=== PATIENT | male | born 1990 | race Caucasian/White ===

== ENCOUNTER 2016-10-19 16:07 | Emergency (ER) | payer OTHER ==
[2016-10-19] MEDS ORDERED: SODIUM CHLORIDE 0.9% 500 ML IV STA (17:06)
[2016-10-19] MEDS ORDERED: KETOROLAC 30 MG/ML 1 ML VIAL IVP STA (17:06)
--- NOTE | 2016-10-19 17:12 | ED ---
General Adult HPI - General Chief complaint: Abdominal Pain Stated complaint: Abd Pain Time Seen by Provider: 10/19/16 16:10 Source: patient, RN notes reviewed Mode of arrival: ambulatory Limitations: no limitations - History of Present Illness Initial comments: This is a 26-year-old male presents emergency Department complaining of abdominal pain. Patient states it started in the epigastric region on Wednesday but has progressed to the right lower quadrant. Patient states he does a lot of heavy lifting at work but he does not remember straining himself. Patient states twisting does make the pain increased. Patient states he is nauseated but has been able to eat and drink normally. Patient denies any diarrhea. Patient states he's had no fever chills. Patient denies any radiation of the pain. Patient denies any dysuria hematuria urinary frequency. Patient denies any back pain. Patient denies chest pain palpitations difficulty breathing. - Related Data Previous Rx's Medication Instructions Recorded Levofloxacin [Levaquin] 750 mg PO DAILY #10 tab 10/19/16 metroNIDAZOLE [Flagyl] 500 mg PO QID #40 tab 10/19/16 Allergies Allergy/AdvReac Type Severity Reaction Status Date / Time amphetamine [From Adderall] Allergy Rash/Hives Verified 10/19/16 16:54 dextroamphetamine Allergy Rash/Hives Verified 10/19/16 16:54 [From Adderall] Penicillins Allergy Rash/Hives Verified 10/19/16 16:54 Review of Systems ROS Statement: Those systems with pertinent positive or pertinent negative responses have been documented in the HPI. ROS Other: All systems not noted in ROS Statement are negative. Past Medical History Past Medical History: No Reported History History of Any Multi-Drug Resistant Organisms: None Reported Past Surgical History: Orthopedic Surgery Additional Past Surgical History / Comment(s): Right hand surg Past Psychological History: No Psychological Hx Reported Smoking Status: Current every day smoker Past Alcohol Use History: Occasional Past Drug Use History: None Reported General Exam - General Exam Comments Initial Comments: GENERAL: Patient is well-developed and well-nourished. Patient is nontoxic and well- hydrated and is in mild distress. ENT: Neck is soft and supple. No significant lymphadenopathy is noted. Oropharynx is clear. Moist mucous membranes. Neck has full range of motion without eliciting any pain. EYES: The sclera were anicteric and conjunctiva were pink and moist. Extraocular movements were intact and pupils were equal round and reactive to light. Eyelids were unremarkable. PULMONARY: Unlabored respirations. Good breath sounds bilaterally. No audible rales rhonchi or wheezing was noted. CARDIOVASCULAR: There is a regular rate and rhythm without any murmurs gallops or rubs. ABDOMEN: Abdomen is tender in the right lateral mid abdomen No palpable organomegaly was noted. There is no palpable pulsatile mass. SKIN: Skin is clear with no lesions or rashes and otherwise unremarkable. NEUROLOGIC: Patient is alert and oriented x3. Cranial nerves II through XII are grossly intact. Motor and sensory are also intact. Normal speech, volume and content. Symmetrical smile. MUSCULOSKELETAL: Normal extremities with adequate strength and full range of motion. No lower extremity swelling or edema. No calf tenderness. LYMPHATICS: No significant lymphadenopathy is noted PSYCHIATRIC: Normal psychiatric evaluation. Normal interpersonal interactions appears functionally intact in deals appropriately with others. No signs of depression. No signs of anxiety. Limitations: no limitations Course Vital Signs 10/19/16 10/19/16 16:09 18:30 Temperature 98.5 F Pulse Rate 72 59 L Respiratory 16 18 Rate Blood Pressure 151/87 133/62 O2 Sat by Pulse 98 98 Oximetry Medical Decision Making - Medical Decision Making Ultrasound shows a possible appendicitis. CAT scan verifies the patient has acute appendicitis. Dr. Virk came down to talk to the patient patient refused surgery. I patient again he continued to refuse surgery. Patient states he wants to go home and go on antibiotics and see if that helps. Patient states he wants to sign out AMA. Patient understands the risks of his symptoms getting worse and possibly causing . - Lab Data Result diagrams: 10/19/16 17:24 10/19/16 17:24 Lab Results 10/19/16 10/19/16 10/19/16 Range/Units 17:24 17:24 17:24 WBC 6.8 (3.8-10.6) k/uL RBC 5.31 (4.30-5.90) m/uL Hgb 17.1 (13.0-17.5) gm/dL Hct 47.9 (39.0-53.0) % MCV 90.3 (80.0-100.0) fL MCH 32.2 (25.0-35.0) pg MCHC 35.7 (31.0-37.0) g/dL RDW 12.5 (11.5-15.5) % Plt Count 227 (150-450) k/uL Neutrophils % 61 % Lymphocytes % 26 % Monocytes % 6 % Eosinophils % 4 % Basophils % 1 % Neutrophils # 4.1 (1.3-7.7) k/uL Lymphocytes # 1.8 (1.0-4.8) k/uL Monocytes # 0.4 (0-1.0) k/uL Eosinophils # 0.3 (0-0.7) k/uL Basophils # 0.1 (0-0.2) k/uL Sodium 143 (137-145) mmol/L Potassium 4.4 (3.5-5.1) mmol/L Chloride 108 H (98-107) mmol/L Carbon Dioxide 24 (22-30) mmol/L Anion Gap 11 mmol/L BUN 13 (9-20) mg/dL Creatinine 1.09 (0.66-1.25) mg/dL Est GFR (MDRD) Af Amer >60 (>60 ml/min/1.73 sqM) Est GFR (MDRD) Non-Af >60 (>60 ml/min/1.73 sqM) Glucose 82 (74-99) mg/dL Calcium 9.5 (8.4-10.2) mg/dL Total Bilirubin 0.6 (0.2-1.3) mg/dL AST 19 (17-59) U/L ALT 40 (21-72) U/L Alkaline Phosphatase 56 (38-126) U/L Total Protein 7.3 (6.3-8.2) g/dL Albumin 4.4 (3.5-5.0) g/dL Amylase <30 L (30-110) U/L Lipase 82 (23-300) U/L Urine Color Yellow Urine Appearance Clear (Clear) Urine pH 5.5 (5.0-8.0) Ur Specific [place] 1.026 (1.001-1.035) Urine Protein Trace H (Negative) Urine Glucose (UA) Negative (Negative) Urine Ketones Negative (Negative) Urine Blood Negative (Negative) Urine Nitrite Negative (Negative) Urine Bilirubin Negative (Negative) Urine Urobilinogen <2.0 (<2.0) mg/dL Ur Leukocyte Esterase Negative (Negative) Disposition Clinical Impression: Acute appendicitis Disposition: Left Against Medical Advice Prescriptions: Levofloxacin [Levaquin] 750 mg PO DAILY #10 tab metroNIDAZOLE [Flagyl] 500 mg PO QID #40 tab Referrals: Jason Bloom DO [Primary Care Provider] - 1-2 days Time of Disposition: 20:24
[2016-10-19 17:38] LABS: Appearance,Urine Clear (Clear); Bilirubin,Urine Negative (Negative); Glucose,Urine (UA) Negative (Negative); Ketones,Urine Negative (Negative); Leukocyte Esterase,Urine Negative (Negative); Nitrite,Urine Negative (Negative); PH, Urine 5.5 (5.0-8.0); Protein,Urine Trace (Negative); Specific Gravity,Urine 1.026 (1.001-1.035); UA Billing (MACRO vs. MICRO) CHEM; Urobilinogen,Urine <2.0 mg/dL (<2.0)
[2016-10-19 17:43] LABS: ALT 40 U/L (21-72); AST 19 U/L (17-59); Alkaline Phosphatase 56 U/L (38-126); Amylase <30 U/L (30-110); Anion Gap 11 mmol/L; Blood Urea Nitrogen 13 mg/dL (9-20); Calcium 9.5 mg/dL (8.4-10.2); Carbon Dioxide 24 mmol/L (22-30); Chloride 108 mmol/L (98-107); Glucose 82 mg/dL (74-99); Non-African American GFR(MDRD) >60 (>60 ml/min/1.73 sqM); Potassium 4.4 mmol/L (3.5-5.1); Sodium 143 mmol/L (137-145); Total Bilirubin 0.6 mg/dL (0.2-1.3); Total Protein 7.3 g/dL (6.3-8.2)
[2016-10-19 17:45] LABS: Basophils # (A) 0.1 k/uL (0-0.2); Basophils % (A) 1 %; CH 32.2; CHCM 35.8; Eosinophils # (A) 0.3 k/uL (0-0.7); Eosinophils % (A) 4 %; HCT 47.9 % (39.0-53.0); HDW 2.75; HGB 17.1 gm/dL (13.0-17.5); Luc % (Auto) 3; Lymphocytes # (A) 1.8 k/uL (1.0-4.8); Lymphocytes % (A) 26 %; MCH 32.2 pg (25.0-35.0); MCHC 35.7 g/dL (31.0-37.0); MCV 90.3 fL (80.0-100.0); Mean Platelet Volume 7.3; Monocytes # (A) 0.4 k/uL (0-1.0); Monocytes % (A) 6 %; Neutrophils # (A) 4.1 k/uL (1.3-7.7); Neutrophils % (A) 61 %; RBC 5.31 m/uL (4.30-5.90); RDW 12.5 % (11.5-15.5); WBC 6.8 k/uL (3.8-10.6); WBC (Perox) 6.72
[2016-10-19 18:31] VITALS: RESP 18
--- NOTE | 2016-10-19 19:06 | US ---
EXAMINATION TYPE: US abdomen APPY DATE OF EXAM: 10/19/2016 COMPARISON: NONE CLINICAL HISTORY: RLQ Pain. APPENDIX AP Diameter (normal < 6mm): 10 mm Measured outer wall to outer wall. Is the appendix seen in its entirety from the proximal cecum to distal end: Cecum is not visualized, however a tube like structure is visualized in the RLQ measuring 10 mm, possible appendix Is the appendix compressible: No Does the appendix wall appear hypervascular: Yes Is an appendicolith present: Not visualized on this exam Is there inflammatory changes or free fluid present: Yes, small amount of free fluid visualized in R LQ IMPRESSION: There is a 9 mm tubular structure demonstrated that is possibly a thickened appendix and related to appendicitis. There is minimal free fluid as well consistent with appendicitis.
[2016-10-19] MEDS ORDERED: RX INFO: IV CONTRAST WAS GIVEN 1 EACH MISC MISCELLANE PRN (19:11)
--- NOTE | 2016-10-19 20:15 | CT ---
EXAMINATION TYPE: CT abdomen pelvis w con DATE OF EXAM: 10/19/2016 COMPARISON: NONE HISTORY: RLQ pain x3 days. CT DLP: 642.7 mGycm Automated exposure control for dose reduction was used. TECHNIQUE: Helical acquisition of images was performed from the lung bases through the pelvis. CONTRAST: Performed without Oral Contrast and with IV Contrast, patient injected with 100 mL of Omnipaque 300. FINDINGS: Lung bases are clear. There is no pleural effusion. Liver spleen pancreas gallbladder appear normal. Bile ducts are not dilated. There is no adrenal mass. Kidneys show satisfactory contrast opacification. There is no hydronephrosi s. Ureters are not dilated. There is mild thickening of the appendix. There is minimal fat stranding around the appendix. There is no retroperitoneal adenopathy. There is no ascites. Bony structures appear intact. Bladder distends smoothly. There is no pelvic mass. Appendix measures 10 mm. IMPRESSION: THERE IS INFLAMMATORY CHANGE AND THICKENING OF THE APPENDIX CONSISTENT WITH ACUTE APPENDICITIS. NO AB SCESS.
[2016-10-19 20:32] VITALS: BP 145/67; PULSE 73; TEMP 98.6
--- NOTE | 2016-10-19 20:37 | P.PN ---
Progress Note - Text Patient seen and evaluated. I personally reviewed his studies which is consistent with acute appendicitis. Clinical exam is also consistent with right lower quadrant abdominal pain and acute appendicitis. The patient does report that his abdominal pain has improved. He is actually eager to go home. The patient is against any surgical intervention at this time. Risk of perforation including worsening abdominal pain was reviewed with him which he demonstrated understanding. The above discussion was also removed Dr. Dahl. Patient chose to leave AGAINST MEDICAL ADVICE.
== END 2016-10-19 20:38 | disposition left against medical advice (07) ==
LOC: EC 16:07
DX: K35.80 Unspecified acute appendicitis (principal); F17.200 Nicotine dependence, unspecified, uncomplicated; Z88.0 Allergy status to penicillin; Z88.8 Allergy status to other drugs, medicaments and biological substances; Z53.29 Procedure and treatment not carried out because of patient's decision for other reasons
CPT/HCPCS: 96374 ×2; 99284 ×2; 36415; 80053; 82150; 83690; 85025; 81003; 76705; 74177; J1885; Q9967

== ENCOUNTER 2016-10-20 17:51 | Observation (INO) | payer OTHER ==
[2016-10-20] MEDS ORDERED: LEVOFLOXACIN 750MG-D5W PMX 750 MG in DEXTROSE/WATER 1 150ML.BAG IVPB STA (18:14)
[2016-10-20] MEDS ORDERED: SODIUM CHLORIDE 0.9% 1,000 ML IV STA (18:14)
[2016-10-20] MEDS ORDERED: metroNIDAZOLE-NS PMX 500 MG in SALINE 1 100ML.BAG IVPB STA (18:18)
--- NOTE | 2016-10-20 18:22 | ED ---
Abdominal Pain HPI - General Chief Complaint: Abdominal Pain Stated Complaint: RLQ pain Time Seen by Provider: 10/20/16 18:09 Source: patient, RN notes reviewed Mode of arrival: ambulatory Limitations: no limitations - History of Present Illness Initial Comments: This a 26-year-old male presents emergency Department chief complaint of abdominal pain. Patient was seen in emergency department yesterday diagnosed with acute appendicitis but he left AGAINST MEDICAL ADVICE. Patient was evaluated by the surgeon in the emergency Department Dr. Virk. Patient left even against her recommendations surgery. Patient states that he has been taking Flagyl at home antibiotics. Patient states that the pain worsened today along with feeling feverish. Patient denies any vomiting had said some nausea no diarrhea no constipation. Patient states that he was concerned when the symptoms worsened today and decided to return. - Related Data Previous Rx's Medication Instructions Recorded Levofloxacin [Levaquin] 750 mg PO DAILY #10 tab 10/19/16 metroNIDAZOLE [Flagyl] 500 mg PO QID #40 tab 10/19/16 Allergies Allergy/AdvReac Type Severity Reaction Status Date / Time amphetamine [From Adderall] Allergy Rash/Hives Verified 10/20/16 18:07 dextroamphetamine Allergy Rash/Hives Verified 10/20/16 18:07 [From Adderall] Penicillins Allergy Rash/Hives Verified 10/20/16 18:07 Review of Systems ROS Statement: Those systems with pertinent positive or pertinent negative responses have been documented in the HPI. ROS Other: All systems not noted in ROS Statement are negative. Past Medical History Past Medical History: No Reported History History of Any Multi-Drug Resistant Organisms: None Reported Past Surgical History: Orthopedic Surgery Additional Past Surgical History / Comment(s): Right hand surg Past Psychological History: No Psychological Hx Reported Smoking Status: Current every day smoker Past Alcohol Use History: Occasional Past Drug Use History: None Reported General Exam Limitations: no limitations General appearance: alert, in no apparent distress Respiratory exam: Present: normal lung sounds bilaterally. Absent: respiratory distress, wheezes, rales, rhonchi, stridor Cardiovascular Exam: Present: regular rate, normal rhythm, normal heart sounds. Absent: systolic murmur, diastolic murmur, rubs, gallop, clicks GI/Abdominal exam: Present: soft, tenderness (Moderate right lower quadrant tenderness ), normal bowel sounds. Absent: distended, guarding, rebound, rigid Back exam: Absent: CVA tenderness (R), CVA tenderness (L) Skin exam: Present: warm, dry, intact, normal color. Absent: rash Course Vital Signs 10/20/16 18:04 Temperature 99.7 F H Pulse Rate 77 Respiratory 18 Rate Blood Pressure 139/67 O2 Sat by Pulse 98 Oximetry Medical Decision Making - Lab Data Result diagrams: 10/20/16 18:36 10/20/16 18:36 Lab Results 10/20/16 10/20/16 10/20/16 Range/Units 18:36 18:36 18:36 WBC 7.1 (3.8-10.6) k/uL RBC 5.24 (4.30-5.90) m/uL Hgb 16.8 (13.0-17.5) gm/dL Hct 48.2 (39.0-53.0) % MCV 92.1 (80.0-100.0) fL MCH 32.1 (25.0-35.0) pg MCHC 34.8 (31.0-37.0) g/dL RDW 13.3 (11.5-15.5) % Plt Count 247 (150-450) k/uL Neutrophils % 60 % Lymphocytes % 26 % Monocytes % 7 % Eosinophils % 4 % Basophils % 1 % Neutrophils # 4.2 (1.3-7.7) k/uL Lymphocytes # 1.9 (1.0-4.8) k/uL Monocytes # 0.5 (0-1.0) k/uL Eosinophils # 0.3 (0-0.7) k/uL Basophils # 0.1 (0-0.2) k/uL Sodium 142 (137-145) mmol/L Potassium 4.3 (3.5-5.1) mmol/L Chloride 108 H (98-107) mmol/L Carbon Dioxide 23 (22-30) mmol/L Anion Gap 11 mmol/L BUN 13 (9-20) mg/dL Creatinine 1.10 (0.66-1.25) mg/dL Est GFR (MDRD) Af Amer >60 (>60 ml/min/1.73 sqM) Est GFR (MDRD) Non-Af >60 (>60 ml/min/1.73 sqM) Glucose 82 (74-99) mg/dL Plasma Lactic Acid [place] 0.7 (0.7-2.0) mmol/L Calcium 9.9 (8.4-10.2) mg/dL Total Bilirubin 0.9 (0.2-1.3) mg/dL AST 18 (17-59) U/L ALT 39 (21-72) U/L Alkaline Phosphatase 61 (38-126) U/L Total Protein 7.0 (6.3-8.2) g/dL Albumin 4.3 (3.5-5.0) g/dL Amylase 35 (30-110) U/L Lipase 88 (23-300) U/L Disposition Clinical Impression: Acute appendicitis Disposition: ADMITTED IP TO THIS HOSP Condition: Fair Referrals: Jason Bloom DO [Primary Care Provider] - 1-2 days
[2016-10-20 18:47] LABS: Basophils # (A) 0.1 k/uL (0-0.2); Basophils % (A) 1 %; CH 33.3; CHCM 36.3; Eosinophils # (A) 0.3 k/uL (0-0.7); Eosinophils % (A) 4 %; HCT 48.2 % (39.0-53.0); HDW 2.67; HGB 16.8 gm/dL (13.0-17.5); Luc # (Auto) 0.21; Luc % (Auto) 3; Lymphocytes # (A) 1.9 k/uL (1.0-4.8); Lymphocytes % (A) 26 %; MCH 32.1 pg (25.0-35.0); MCHC 34.8 g/dL (31.0-37.0); MCV 92.1 fL (80.0-100.0); Mean Platelet Volume 8.1; Monocytes # (A) 0.5 k/uL (0-1.0); Monocytes % (A) 7 %; Neutrophils # (A) 4.2 k/uL (1.3-7.7); Neutrophils % (A) 60 %; RBC 5.24 m/uL (4.30-5.90); RDW 13.3 % (11.5-15.5); WBC 7.1 k/uL (3.8-10.6); WBC (Perox) 6.72
[2016-10-20 19:01] LABS: ALT 39 U/L (21-72); AST 18 U/L (17-59); Alkaline Phosphatase 61 U/L (38-126); Amylase 35 U/L (30-110); Anion Gap 11 mmol/L; Blood Urea Nitrogen 13 mg/dL (9-20); Calcium 9.9 mg/dL (8.4-10.2); Carbon Dioxide 23 mmol/L (22-30); Chloride 108 mmol/L (98-107); Glucose 82 mg/dL (74-99); Non-African American GFR(MDRD) >60 (>60 ml/min/1.73 sqM); Potassium 4.3 mmol/L (3.5-5.1); Sodium 142 mmol/L (137-145); Total Bilirubin 0.9 mg/dL (0.2-1.3)
[2016-10-20] MEDS ORDERED: ONDANSETRON 4 MG/2 ML VIAL IVP PRN (19:33)
[2016-10-20] MEDS ORDERED: MORPHINE SULFATE 4 MG/ML SYRINGE IV PRN (19:33)
[2016-10-20] MEDS ORDERED: NALOXONE 0.4 MG/ML 1 ML VIAL IV PRN (19:33)
--- NOTE | 2016-10-20 20:17 | P.PN ---
Progress Note - Text Patient seen and evaluated. Patient is agreeable to proceed with surgery. He reports an appetite and is stable. Will plan for laparoscopic appendectomy tomorrow.
[2016-10-20] MEDS: SODIUM CHLORIDE 0.9% 1,000 ML IV SCH (20:37)
[2016-10-20] MEDS: diphenhydrAMINE 50 MG/ML 1 ML VIAL IVP STA (20:40)
[2016-10-21] MEDS: SODIUM CHLORIDE 0.9% 1,000 ML IV SCH (05:43)
--- NOTE | 2016-10-21 09:47 | P.HPADDEND ---
H&P Addendum H&P Addendum Date: 10/21/16 Patient still continues to have right lower quadrant abdominal pain and appendicitis. We'll proceed with appendectomy.
--- NOTE | 2016-10-21 10:10 | P.GSHP ---
History of Present Illness H&P Date: 10/20/16 CHIEF COMPLAINT: Right lower quadrant abdominal pain with appendicitis for over 2 weeks. HISTORY OF PRESENT ILLNESS: The patient is a previously healthy 26-year-old male who presents with over 2 week history of periumbilical with right lower quadrant abdominal pain. He presented to the emergency room yesterday where he had a CT of the abdomen and pelvis consistent with acute appendicitis. The patient at that time stated he felt better and had left AGAINST MEDICAL ADVICE for surgical intervention. He then presented to the ER 24 hours later as his right lower quadrant abdominal pain had worsened. Now he presents for definitive surgical intervention with laparoscopic appendectomy. PAST MEDICAL HISTORY: See list. PAST SURGICAL HISTORY: See list. CURRENT MEDICATIONS: See list. ALLERGIES: DENIES. SOCIAL HISTORY: Active tobacco use. History of alcohol use. FAMILY HISTORY: Denies Crohns disease and ulcerative colitis. REVIEW OF ORGAN SYSTEMS: CONSTITUTIONAL: Denies any fever or chills. HEENT: Denies any trouble with vision, hearing or nosebleeds. No difficulty swallowing. LYMPHATIC: The patient denies any lumps and bumps around the neck. ENDOCRINE: Denies any thyroid disorders. Denies any blood sugar glucose intolerance. RESPIRATORY: Denies shortness of breath including chronic cough. CARDIOVASCULAR: Denies history of chest pain with exertion. GASTROINTESTINAL: Denies regurgitation of bile at night as well as intermittent nausea. No blood in stools. GENITOURINARY: Denies any blood in urine or increased urinary frequency. Previous history of kidney stones.` MUSCULOSKELETAL: Denies current joint arthritis. NEUROLOGIC: Denies any numbness or tingling along the distal extremities. No seizure disorders or headaches. PSYCHIATRIC: Denies any depression or suicidal ideation. HEMATOLOGIC: Denies any abnormal bleeding or bruising. PHYSICAL EXAMINATION: Vital Signs Temp 98 F 10/21/16 09:17 Pulse 68 10/21/16 09:17 Resp 14 10/21/16 09:17 BP 130/80 10/21/16 09:17 Pulse Ox 97 10/21/16 09:17 Intake & Output 10/20/16 10/21/16 10/21/16 18:59 06:59 18:59 Intake Total 1125 Balance 1125 Weight 96.162 kg Intake: Intake, IV Titration 1125 Amount Sodium Chloride 0.9% 1, 1125 000 ml @ 125 mls/hr IV . Q8H LUCÍA Rx#:[id number] Other: Voiding Method Toilet GENERAL: Well developed and in no acute distress. Pleasant. HEENT: No sclera icterus. Extraocular movements grossly intact. Moist buccal mucosa. Head is atraumatic, normocephalic. Hears conversational speech. No nasal drainage. NECK: Supple without lymphadenopathy. No JV distention. CHEST: Non-labored respirations and equal bilateral excursions. CARDIOVASCULAR: Regular rate and rhythm. Palpable 2+ radial pulses. ABDOMEN: Soft, tender at the right lower quadrant with guarding. MUSCULOSKELETAL: No clubbing, cyanosis or edema. NEUROLOGIC: No focal or lateralizing signs. PSYCH: Appropriate affect. Alert and oriented to person, place and time. LABS: Laboratory Last Values WBC 7.1 k/uL (3.8-10.6) 10/20/16 18:36 RBC 5.24 m/uL (4.30-5.90) 10/20/16 18:36 Hgb 16.8 gm/dL (13.0-17.5) 10/20/16 18:36 Hct 48.2 % (39.0-53.0) 10/20/16 18:36 MCV 92.1 fL (80.0-100.0) 10/20/16 18:36 MCH 32.1 pg (25.0-35.0) 10/20/16 18:36 MCHC 34.8 g/dL (31.0-37.0) 10/20/16 18:36 RDW 13.3 % (11.5-15.5) 10/20/16 18:36 Plt Count 247 k/uL (150-450) 10/20/16 18:36 Neutrophils % 60 % 10/20/16 18:36 Lymphocytes % 26 % 10/20/16 18:36 Monocytes % 7 % 10/20/16 18:36 Eosinophils % 4 % 10/20/16 18:36 Basophils % 1 % 10/20/16 18:36 Neutrophils # 4.2 k/uL (1.3-7.7) 10/20/16 18:36 Lymphocytes # 1.9 k/uL (1.0-4.8) 10/20/16 18:36 Monocytes # 0.5 k/uL (0-1.0) 10/20/16 18:36 Eosinophils # 0.3 k/uL (0-0.7) 10/20/16 18:36 Basophils # 0.1 k/uL (0-0.2) 10/20/16 18:36 Sodium 142 mmol/L (137-145) 10/20/16 18:36 Potassium 4.3 mmol/L (3.5-5.1) 10/20/16 18:36 Chloride 108 mmol/L (98-107) H 10/20/16 18:36 Carbon Dioxide 23 mmol/L (22-30) 10/20/16 18:36 Anion Gap 11 mmol/L 10/20/16 18:36 BUN 13 mg/dL (9-20) 10/20/16 18:36 Creatinine 1.10 mg/dL (0.66-1.25) 10/20/16 18:36 Est GFR (MDRD) Af Amer >60 (>60 ml/min/1.73 sqM) 10/20/16 18:36 Est GFR (MDRD) Non-Af >60 (>60 ml/min/1.73 sqM) 10/20/16 18:36 Glucose 82 mg/dL (74-99) 10/20/16 18:36 Plasma Lactic Acid [place] 0.7 mmol/L (0.7-2.0) 10/20/16 18:36 Calcium 9.9 mg/dL (8.4-10.2) 10/20/16 18:36 Total Bilirubin 0.9 mg/dL (0.2-1.3) 10/20/16 18:36 AST 18 U/L (17-59) 10/20/16 18:36 ALT 39 U/L (21-72) 10/20/16 18:36 Alkaline Phosphatase 61 U/L (38-126) 10/20/16 18:36 Total Protein 7.0 g/dL (6.3-8.2) 10/20/16 18:36 Albumin 4.3 g/dL (3.5-5.0) 10/20/16 18:36 Amylase 35 U/L (30-110) 10/20/16 18:36 Lipase 88 U/L (23-300) 10/20/16 18:36 STUDIES: CT of the abdomen and pelvis reviewed with findings consistent with appendicitis. ASSESSMENT: 1. Right lower quadrant pain. 2. Appendicitis. PLAN: 1. I have discussed benefits and risks of laparoscopic appendectomy. 2. Bilateral SCDs. 3. Antibiotics. 4. DVT prophylaxis with heparin. 5. GI prophylaxis. Thank you very much for allowing me to participate in the care of your patient. Past Medical History Past Medical History: No Reported History History of Any Multi-Drug Resistant Organisms: None Reported Past Surgical History: Orthopedic Surgery Additional Past Surgical History / Comment(s): Right hand surg Past Psychological History: No Psychological Hx Reported Smoking Status: Current every day smoker Past Alcohol Use History: Occasional Past Drug Use History: None Reported Medications and Allergies Allergies Allergy/AdvReac Type Severity Reaction Status Date / Time amphetamine [From Adderall] Allergy Rash/Hives Verified 10/20/16 18:07 dextroamphetamine Allergy Rash/Hives Verified 10/20/16 18:07 [From Adderall] Penicillins Allergy Rash/Hives Verified 10/20/16 18:07 Surgical - Exam Vital Signs Temp Pulse Resp BP Pulse Ox 99.7 F H 77 18 139/67 98 10/20/16 18:04 10/20/16 18:04 10/20/16 18:04 10/20/16 18:04 10/20/16 18:04 Results - Labs 10/20/16 18:36 10/20/16 18:36 Abnormal Lab Results - Last 24 Hours (Table) 10/20/16 Range/Units 18:36 Chloride 108 H (98-107) mmol/L Diabetes panel 10/20/16 Range/Units 18:36 Sodium 142 (137-145) mmol/L Potassium 4.3 (3.5-5.1) mmol/L Chloride 108 H (98-107) mmol/L Carbon Dioxide 23 (22-30) mmol/L BUN 13 (9-20) mg/dL Creatinine 1.10 (0.66-1.25) mg/dL Glucose 82 (74-99) mg/dL Calcium 9.9 (8.4-10.2) mg/dL AST 18 (17-59) U/L ALT 39 (21-72) U/L Alkaline Phosphatase 61 (38-126) U/L Total Protein 7.0 (6.3-8.2) g/dL Albumin 4.3 (3.5-5.0) g/dL Calcium panel 10/20/16 Range/Units 18:36 Calcium 9.9 (8.4-10.2) mg/dL Albumin 4.3 (3.5-5.0) g/dL Pituitary panel 10/20/16 Range/Units 18:36 Sodium 142 (137-145) mmol/L Potassium 4.3 (3.5-5.1) mmol/L Chloride 108 H (98-107) mmol/L Carbon Dioxide 23 (22-30) mmol/L BUN 13 (9-20) mg/dL Creatinine 1.10 (0.66-1.25) mg/dL Glucose 82 (74-99) mg/dL Calcium 9.9 (8.4-10.2) mg/dL Adrenal panel 10/20/16 Range/Units 18:36 Sodium 142 (137-145) mmol/L Potassium 4.3 (3.5-5.1) mmol/L Chloride 108 H (98-107) mmol/L Carbon Dioxide 23 (22-30) mmol/L BUN 13 (9-20) mg/dL Creatinine 1.10 (0.66-1.25) mg/dL Glucose 82 (74-99) mg/dL Calcium 9.9 (8.4-10.2) mg/dL Total Bilirubin 0.9 (0.2-1.3) mg/dL AST 18 (17-59) U/L ALT 39 (21-72) U/L Alkaline Phosphatase 61 (38-126) U/L Total Protein 7.0 (6.3-8.2) g/dL Albumin 4.3 (3.5-5.0) g/dL
[2016-10-21] MEDS ORDERED: HEPARIN SODIUM,PORCINE 5,000 UNIT/ML 1 ML VIAL SQ STA (10:52)
[2016-10-21] MEDS ORDERED: ALBUTEROL NEBULIZED 2.5 MG/3 ML INHALATION ONE (11:00)
[2016-10-21] MEDS ORDERED: LACTATED RINGERS 1,000 ML IV ONE ×2 (11:05→11:13)
[2016-10-21] MEDS ORDERED: GLYCOPYRROLATE 0.2 MG/ML 2 ML VIAL ONE (11:13)
[2016-10-21] MEDS ORDERED: fentaNYL (PF) 50 MCG/ML 2 ML AMP ONE (11:13)
[2016-10-21] MEDS ORDERED: NEOSTIGMINE 1 MG/ML 10 ML VIAL ONE (11:13)
[2016-10-21] MEDS ORDERED: ROCURONIUM BROMIDE 10 MG/ML 10 ML VIAL IV ONE (11:13)
[2016-10-21] MEDS ORDERED: PROPOFOL 10 MG/ML 20 ML VIAL IV ONE (11:13)
[2016-10-21] MEDS ORDERED: LIDOCAINE 1% INJ 10MG/ML (20 ML MDV) ONE (11:13)
[2016-10-21] MEDS ORDERED: BUPIVACAINE-EPI 0.5%-1:200,000 10 ML VIAL SQ ONE ×2 (11:13)
[2016-10-21] MEDS ORDERED: SUCCINYLCHOLINE CHLORIDE VIAL 200 MG/10 ML VIAL IV ONE (11:13)
[2016-10-21] MEDS ORDERED: MEPERIDINE 50 MG/ML SYRINGE ONE (11:13)
[2016-10-21] MEDS ORDERED: MIDAZOLAM 2 MG/2 ML VIAL ONE (11:13)
[2016-10-21] MEDS: HYDROmorphone 1 MG/ML 1 ML SYRINGE IVP ONE ×2 (12:08→12:15)
--- NOTE | 2016-10-21 12:09 | P.PCN ---
Date of Procedure: 10/21/16 Preoperative Diagnosis: Acute appendicitis Postoperative Diagnosis: Same Procedure(s) Performed: Laparoscopic appendectomy Implants: Anesthesia: GETA, local Surgeon: Britt Blank Estimated Blood Loss (ml): 5 Pathology: other (appendix) Condition: stable Disposition: floor Indications for Procedure: Retrocecal appendicitis Operative Findings: Description of Procedure:
[2016-10-21] MEDS: diphenhydrAMINE 50 MG/ML 1 ML VIAL IVP STA (12:14)
[2016-10-21] MEDS ORDERED: HYDROcodone/APAP 5-325MG 1 EACH TAB PO PRN (12:15)
[2016-10-21] MEDS: KETOROLAC 30 MG/ML 1 ML VIAL IVP SCH ×2 (12:37→17:57)
[2016-10-21] MEDS ORDERED: metroNIDAZOLE-NS PMX 500 MG in SALINE 1 100ML.BAG IVPB STA (12:46)
[2016-10-21 12:49] VITALS: RESP 18
[2016-10-21] MEDS ORDERED: LEVOFLOXACIN 500MG-D5W PMX 500 MG in DEXTROSE/WATER 1 100ML.BAG IVPB STA (16:14)
[2016-10-21] MEDS: FAMOTIDINE 20 MG TAB PO SCH ×2 (16:38→20:17)
[2016-10-21] MEDS ORDERED: metroNIDAZOLE-NS PMX 500 MG in SALINE 1 100ML.BAG IVPB SCH (18:00)
[2016-10-21] MEDS ORDERED: LEVOFLOXACIN 500MG-D5W PMX 500 MG in DEXTROSE/WATER 1 100ML.BAG IVPB SCH (21:00)
--- NOTE | 2016-10-21 21:15 | P.PN ---
Progress Note - Text Patient seen and evaluated. He is doing much better. Patient may be discharge home with follow-up next week.
[2016-10-21 22:08] VITALS: BP 119/69; PULSE 63; TEMP 97.6
--- NOTE | 2016-10-26 16:35 | CDI ---
Documentation Clarification OP Dear Dr Blank, Please provide clarification of the procedure by finishing the Operative Findings section and the Description of Procedure section of the Procedure note. Please respond to this query by dictating an addendum to your Procedure Note. Thank you for your assistance. Rema Pereira If you have any questions, please contact Canal Driver, Esme Dominguez at [phone]. Please see full dictated report MTDD
--- NOTE | 2016-11-17 19:23 | CDI ---
Documentation Clarification OP Dear Dr Wong, On the Procedure Note for the laparoscopic Appendectomy, there is no description of the procudure. I am unable to code this chart without the proper documentation. Please complete an addendum to the PROCEDURE NOTE including the description of the procedure so that I can code the most accurate codes. Thank you for your assistance. CHAD eRy If you have any questions, please contact Agricultural Research Engineer, Emse Dominguez at [facility]
--- NOTE | 2016-11-18 10:00 | P.OP ---
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 PREOPERATIVE DIAGNOSES: 1. Right lower quadrant abdominal pain. 2. Acute appendicitis. POSTOPERATIVE DIAGNOSES: 1. Right lower quadrant abdominal pain. 2. Acute appendicitis. 3. Retrocecal acute appendicitis with periappendicitis, without rupture. PROCEDURES PERFORMED: 1. Diagnostic laparoscopy. 2. Laparoscopic appendectomy. ANESTHESIA: General with 30 mL 0.50% Marcaine with epinephrine. ESTIMATED BLOOD LOSS: 5 mL. SPECIMENS REMOVED: Appendix. COMPLICATIONS: None. OPERATIVE FINDINGS: 1. Acute nonperforated appendicitis, retrocecal INDICATIONS: The patient is a 26-year-old male who presents with right lower quadrant abdominal pain for over 2 days. He reported nausea, including anorexia. He had studies consistent with with acute appendicitis. Benefits and risks, including possibility of open technique were described at length. Informed consent was obtained. DESCRIPTION OR PROCEDURE: Patient was brought to the operating room, laid in supine position. After general induction, the abdomen was prepped and draped in standard sterile fashion. Prior to incision, a timeout protocol was confirmed with surgical team regarding patient's name including procedure to be performed. Preoperative medications were given intraoperatively. Additionally, bilateral SCDs including heparin 5000 units was administered. A transverse infraumbilical incision was made after localizing the skin with anesthetic. A 0 degree 12 mm laparoscopic trocar entry was performed and entered into the peritoneal cavity. The abdomen was insufflated to 15 mmHg of pressure, which he tolerated well. Diagnostic laparoscopy demonstrated no injury to bowel, viscera or mesentery. A 5 mm port was placed just above the pubis. A separate 5 mm port was placed at the left upper quadrant all under direct visualization. The patient was placed in Trendelenburg position with the right side up. A systematic view within the abdominal cavity was started with the small bowel which was unremarkable. The gallbladder was unremarkable. The base of the cecum was without inflammation. The mid to distal appendix was dilated consistent with acute appendicitis including periappendicitis. Appendix was retrocecal initially ascending to the gallbladder. Moderate dissection was performed to free the appendix from the right lower quadrant and advancing to the right flank. A 60 mm Endo LUNA echelon stapler was fired using a smith vascular load. A staple load was used for complete division of the base of the appendix. The staple line was hemostatic. The specimen was removed from the abdominal cavity with a Endo Catch bag through the 12 mm trocar. All instruments and pneumoperitoneum were evacuated from the abdominal cavity. The fascial defect was reapproximated using 0 Vicryl in a Corona Woodson. A total of 30 mL 0.50 % Marcaine with epinephrine was infiltrated in all wounds for postop analgesia. Dermabond was applied to the skin after reapproximating the incisions with 4-0 Monocryl as described. Skin was cleansed with dilute hydrogen peroxide. At the end of the procedure, needle, sponge, and instrument count was verified correct by rn neurosurgical. The patient had tolerated the procedure well, was taken to the postanesthesia care unit in stable condition. Intraoperative abdominal films were reviewed with the patient's family.
--- NOTE | 2016-11-18 10:12 | P.DS ---
Providers Date of admission: 10/20/16 19:33 Expected date of discharge: 10/21/16 Attending physician: Britt Blank Primary care physician: Jason Bloom - Discharge Diagnosis(es) (1) Tobacco abuse Status: Acute (2) Right lower quadrant abdominal pain Status: Acute (3) Retrocecal appendicitis Status: Acute (4) Acute appendicitis Status: Acute Hospital Course: CHIEF COMPLAINT: Right lower quadrant abdominal pain with appendicitis for over 2 weeks. HISTORY OF PRESENT ILLNESS: The patient is a previously healthy 26-year-old male who presents with over 2 week history of periumbilical with right lower quadrant abdominal pain. He presented to the emergency room yesterday where he had a CT of the abdomen and pelvis consistent with acute appendicitis. The patient at that time stated he felt better and had left AGAINST MEDICAL ADVICE for surgical intervention. He then presented to the ER 24 hours later as his right lower quadrant abdominal pain had worsened. He was admitted and taken to the operating room to undergo laparoscopic appendectomy. Postoperatively, his pain had improved. He tolerated diet. Pertinent Studies: CT of the abdomen and pelvis demonstrating acute appendicitis Procedures: Laparoscopic appendectomy for retrocecal appendicitis. Patient Condition at Discharge: Stable Plan - Discharge Summary New Discharge Prescriptions: New Hydrocodone/Acetaminophen [[place] 5-325] 1 - 2 each PO Q6HR PRN #20 tab PRN Reason: Pain Discontinued Levofloxacin [Levaquin] 750 mg PO DAILY #10 tab metroNIDAZOLE [Flagyl] 500 mg PO QID #40 tab Discharge Medication List Hydrocodone/Acetaminophen [[place] 5-325] 1 - 2 each PO Q6HR PRN #20 tab 10/21/16 [Rx] Follow up Appointment(s)/Referral(s): Jason Bloom DO [Primary Care Provider] - 1-2 days Britt Blank MD [STAFF PHYSICIAN] - 10/27/16 Patient Instructions/Handouts: Laparoscopic Appendectomy (DC) Activity/Diet/Wound Care/Special Instructions: No lifting over 4 lbs in 4 weeks. May shower. No bathtub soak. Discharge Disposition: HOME SELF-CARE
== END 2016-10-21 21:53 | disposition home or self-care (01) ==
LOC: EC 17:51 → 3SUR 19:33 → INTOOBSV 19:33
PROVIDERS: ADMIT Surgery Plastic and Reconstructive Surgery; ATTEND Surgery Plastic and Reconstructive Surgery
DX: K35.80 Unspecified acute appendicitis (principal); F17.200 Nicotine dependence, unspecified, uncomplicated; Z88.0 Allergy status to penicillin; Z88.8 Allergy status to other drugs, medicaments and biological substances; Z87.442 Personal history of urinary calculi
CPT/HCPCS: 44970; 96375 ×2; 96365; 99284; 36415; 88304; 80053; 82150; 83605; 83690; 85025; 87040; G0378 ×2; J2250; J0330; J1200 ×2; J2710; J2175; J2405; J1956 ×2; J2001; J3010; J1885; J1170; J2704

== ENCOUNTER → 2019-09-07 | Outpatient (CLI) | payer OTHER ==
--- NOTE | 2019-09-07 15:08 | US ---
EXAMINATION TYPE: US thyroid st tissue head/neck DATE OF EXAM: 09/07/2019 COMPARISON: NONE CLINICAL HISTORY: E04.1 NONTOXIC SINGLE THYROID NODULE. nodule felt by physician, no previous imaging GLAND SIZE: Right Lobe: 5.6 x 1.8 x 2.0 cm Overall Parenchyma: homogenous Left Lobe: 4.9 x 1.4 x 2.0 cm Overall Parenchyma: homogeneous Isthmus Thickness: 0.3 cm NODULES RIGHT: # of nodules measured on right: 0 LEFT: # of nodules measured on left: 0 ISTHMUS: # of nodules measured in the isthmus: 0 Bilateral neck scanned, no evidence of lymphadenopathy. Thyroid echotexture is homogenous and symmetric. IMPRESSION: Normal thyroid ultrasound.
== END | disposition home or self-care (01) ==
LOC: RADUSWWP 12:49
PROVIDERS: ATTEND Internal Medicine
DX: E04.1 Nontoxic single thyroid nodule (principal)
CPT/HCPCS: 76536

== ENCOUNTER 2019-11-13 07:51 | Emergency (ER) | payer OTHER ==
[2019-11-13 07:56] VITALS: BP 155/91; PULSE 95; RESP 18; TEMP 98.1
--- NOTE | 2019-11-13 08:05 | ED ---
SOB HPI - General Chief Complaint: Shortness of Breath Stated Complaint: cough/SOB Time Seen by Provider: 11/13/19 07:56 Source: patient Mode of arrival: ambulatory - History of Present Illness Initial Comments: Patient is a 29-year-old male presenting to the emergency Department with complaints of shortness of breath and cough that started yesterday. Patient states his cough is somewhat dry but is also producing clear colored phlegm. He denies any fever, chills, nausea or vomiting. He denies any chest pains, dizziness. He states he doesn't history of asthma as a child. He currently does not use any inhalers or any other medicines. He has not tried any [id number] medications. He has no further complaints at this time. Upon arrival to the ER, his vital signs are stable. - Related Data Previous Rx's Medication Instructions Recorded Albuterol Inhaler (Mhu) [Ventolin 1 - 2 puff INHALATION Q6HR PRN #2 12/01/16 Hfa Inhaler (Mhu)] inhaler Azithromycin [Zithromax Z-pack] 250 mg PO DIRECTED #6 tab 12/01/16 Promethazine/Dextromethorphan 5 ml PO TID #120 ml 12/01/16 [Phenergan DM Syrup] predniSONE 50 mg PO DAILY #7 tab 12/01/16 Albuterol Inhaler [Ventolin Hfa 1 puff INHALATION QID PRN #1 11/13/19 Inhaler] inhaler Azithromycin [Zithromax Z-pack] 0 mg PO DIRECTED #1 pack 11/13/19 predniSONE [Deltasone] 20 mg PO DAILY 5 Days #5 tab 11/13/19 Allergies Allergy/AdvReac Type Severity Reaction Status Date / Time amphetamine [From Adderall] Allergy Rash/Hives Verified 11/13/19 07:56 dextroamphetamine Allergy Rash/Hives Verified 11/13/19 07:56 [From Adderall] Penicillins Allergy Rash/Hives Verified 11/13/19 07:56 Review of Systems ROS Statement: Those systems with pertinent positive or pertinent negative responses have been documented in the HPI. ROS Other: All systems not noted in ROS Statement are negative. Past Medical History Past Medical History: Asthma History of Any Multi-Drug Resistant Organisms: None Reported Past Surgical History: Appendectomy, Orthopedic Surgery Additional Past Surgical History / Comment(s): Right hand surg Past Psychological History: Depression Smoking Status: Current every day smoker Past Alcohol Use History: Occasional Past Drug Use History: None Reported General Exam - General Exam Comments Initial Comments: GENERAL: Patient is well-developed and well-nourished. Patient is nontoxic and in no acute distress. HEAD: Atraumatic, normocephalic. EYES: Pupils equal round and reactive to light, extraocular movements intact, sclera anicteric, conjunctiva are normal. Eyelids were unremarkable. ENT: TMs normal, nares patent, oropharynx clear without exudates. Moist mucous membranes. NECK: Normal range of motion, supple without lymphadenopathy or JVD. LUNGS: Unlabored respirations. Breath sounds clear to auscultation bilaterally and equal. No wheezes rales or rhonchi. HEART: Regular rate and rhythm without murmurs, rubs or gallops. ABDOMEN: Soft, nontender, normoactive bowel sounds. No guarding, no rebound. No masses appreciated. : Deferred MUSCULOSKELETAL: Normal extremities with adequate strength and normal range of motion, no pitting or edema. No clubbing or cyanosis. NEUROLOGICAL: Patient is alert and oriented x 3. Motor and sensory are also intact. Symmetrical smile. Normal speech, normal gait. PSYCH: Normal mood, normal affect. SKIN: Warm, Dry, normal turgor, no rashes or lesions noted. Course Vital Signs 11/13/19 07:53 Temperature 98.1 F Pulse Rate 95 Respiratory 18 Rate Blood Pressure 155/91 O2 Sat by Pulse 95 Oximetry Medical Decision Making - Medical Decision Making Patient is a 29-year-old male here for shortness of breath and cough that started yesterday. His vital signs are stable upon arrival, patient is not in acute distress, no respiratory distress, talking complete sentences, calm. His exam is unremarkable, no wheezes or rhonchi. Chest x-ray did show a subtle increased density in the left lower lung, could represent atelectasis or early pneumonia. Given patient's cough, shortness of breath I will cover for possible pneumonia. I will prescribe patient Z-Jp, oral steroids as well as an inhaler. Patient is stable for discharge. He is in agreement with this plan of care. Return parameters were discussed with the patient and he verbalized understanding. Case discussed with Dr. Young. Disposition Clinical Impression: Cough, Pneumonia Disposition: HOME SELF-CARE Condition: Stable Instructions (If sedation given, give patient instructions): Pneumonia (ED) Additional Instructions: Please return to the Emergency Department if symptoms worsen or any other concerns. Take medications as prescribed. Use inhaler as needed for shortness of breath. Follow-up with PCP to ensure resolution. Prescriptions: predniSONE [Deltasone] 20 mg PO DAILY 5 Days #5 tab Albuterol Inhaler [Ventolin Hfa Inhaler] 1 puff INHALATION QID PRN #1 inhaler PRN Reason: Shortness Of Breath Azithromycin [Zithromax Z-pack] 0 mg PO DIRECTED #1 pack Is patient prescribed a controlled substance at d/c from ED?: No Referrals: Avis Reno MD [Primary Care Provider] - 1-2 days
--- NOTE | 2019-11-13 08:12 | XR ---
EXAMINATION TYPE: XR chest 2V DATE OF EXAM: 11/13/2019 COMPARISON: 12/01/2016 HISTORY: 29-year-old male cough and shortness of breath TECHNIQUE: PA and lateral views FINDINGS: The cardiomediastinal silhouette, aorta, and pulmonary vasculature are within normal limits. Some sub tle increased patchy density at the inferior lingula. No other consolidation or pleural effusion. IMPRESSION: Some subtle increased density at the inferior lingula could represent atelectasis or early pneumonia. Clinically correlate
== END 2019-11-13 08:30 | disposition home or self-care (01) ==
LOC: EC 07:51
DX: J18.9 Pneumonia, unspecified organism (principal); F17.200 Nicotine dependence, unspecified, uncomplicated; Z88.0 Allergy status to penicillin; Z88.8 Allergy status to other drugs, medicaments and biological substances
CPT/HCPCS: 71046; 99284

== ENCOUNTER → 2020-02-13 | Outpatient (CLI) | payer OTHER | END | disposition home or self-care (01) | LOC: LABWHC1 16:14 | PROVIDERS: ATTEND Psychiatry & Neurology Neurology | DX: R41.3 Other amnesia (principal) | CPT/HCPCS: 36415; 82306; 82607; 84439; 84443 ==

== ENCOUNTER → 2020-07-31 | Outpatient (CLI) | payer OTHER ==
--- NOTE | 2020-08-01 03:21 | MR ---
EXAMINATION TYPE: MR brain wo/w con DATE OF EXAM: 07/31/2020 COMPARISON: HISTORY: Aura Migraine, Rt hand and mouth numbness, speech loss, confusion CONTRAST: Standard multiplanar, multisequence MRI departmental protocol utilizing 11 mL intravenous Gadavist ga dolinium contrast. Ventricles and sulci appear normal. There is no mass effect nor midline shift. There is no evidence o f intracranial hemorrhage. Adames-white matter structures have fairly normal signal pattern. There is n o evidence of cerebral edema. There is extensive mucosal thickening in the paranasal sinuses. Brainstem is intact. Corpus callosum appears normal. Sella turcica is normal. There is no evidence of posterior fossa mass. Diffusion imag es show no evidence of an acute infarct. Contrast images show no pathologic enhancement. There is normal enhancement of the venous sinuses. Op tic chiasm appears normal. Pituitary stalk is in the midline. IMPRESSION: Normal MR scan of the brain. Moderate pansinusitis.
== END | disposition home or self-care (01) ==
LOC: RADMRIMAIN 06:42
PROVIDERS: ATTEND Nurse Practitioner Gerontology
DX: G43.109 Migraine with aura, not intractable, without status migrainosus (principal); J32.4 Chronic pansinusitis
CPT/HCPCS: 70553; A9585

== ENCOUNTER 2020-08-10 15:14 | Emergency (ER) | payer OTHER ==
[2020-08-10 15:40] VITALS: BP 140/88; PULSE 95; RESP 20; TEMP 98.2
[2020-08-10] MEDS ORDERED: DIPH,PERTUS(ACELL)TETVAC-LF 0.5 ML VIAL IM ONE (16:05)
--- NOTE | 2020-08-10 16:13 | ED ---
Wound/Laceration HPI - General Chief Complaint: Wound/Laceration Stated Complaint: nail in lt foot Time Seen by Provider: 08/10/20 15:55 Source: patient Mode of arrival: ambulatory Limitations: no limitations - History of Present Illness Initial Comments: 29-year-old male presents to emergency Department with a chief complaint of stepping on a nail. This occurred about one hour prior to arrival. Patient states she was wearing sandals when the nail pierced through the sole of the shoe and into his skin. Reports minimal pain at the injured site. His tetanus is not up-to-date. Denies any paresthesias. Denies taking medication to alleviate the symptoms. - Related Data Previous Rx's Medication Instructions Recorded Albuterol Inhaler (Mhu) [Ventolin 1 - 2 puff INHALATION Q6HR PRN #2 12/01/16 Hfa Inhaler (Mhu)] inhaler Azithromycin [Zithromax Z-pack (6 250 mg PO DIRECTED #6 tab 12/01/16 tabs)] Promethazine/Dextromethorphan 5 ml PO TID #120 ml 12/01/16 [Phenergan DM Syrup] predniSONE 50 mg PO DAILY #7 tab 12/01/16 Albuterol Inhaler [Ventolin Hfa 1 puff INHALATION QID PRN #1 11/13/19 Inhaler] inhaler Azithromycin [Zithromax Z-pack (6 0 mg PO DIRECTED #1 pack 11/13/19 tabs)] predniSONE [Deltasone] 20 mg PO DAILY 5 Days #5 tab 11/13/19 Ciprofloxacin HCl [Cipro] 500 mg PO Q12HR #20 tablet 08/10/20 Allergies Allergy/AdvReac Type Severity Reaction Status Date / Time amphetamine [From Adderall] Allergy Rash/Hives Verified 08/10/20 15:40 dextroamphetamine Allergy Rash/Hives Verified 08/10/20 15:40 [From Adderall] Penicillins Allergy Rash/Hives Verified 08/10/20 15:40 Review of Systems ROS Statement: Those systems with pertinent positive or pertinent negative responses have been documented in the HPI. ROS Other: All systems not noted in ROS Statement are negative. Past Medical History Past Medical History: Asthma History of Any Multi-Drug Resistant Organisms: None Reported Past Surgical History: Appendectomy, Orthopedic Surgery Additional Past Surgical History / Comment(s): Right hand surg Past Psychological History: Depression Smoking Status: Current every day smoker Past Alcohol Use History: Occasional Past Drug Use History: None Reported General Exam Limitations: no limitations General appearance: alert, in no apparent distress, obese Head exam: Present: atraumatic, normocephalic, normal inspection Eye exam: Present: normal appearance, PERRL, EOMI Pupils: Present: normal accommodation ENT exam: Present: normal exam, normal oropharynx, mucous membranes moist Neck exam: Present: normal inspection, full ROM. Absent: tenderness Respiratory exam: Present: normal lung sounds bilaterally. Absent: respiratory distress, wheezes, rales, rhonchi, stridor, chest wall tenderness, accessory muscle use Cardiovascular Exam: Present: regular rate, normal rhythm, normal heart sounds. Absent: systolic murmur Extremities exam: Present: normal inspection (dorsal aspect small puncture wound. no bleedig. ), full ROM, tenderness (Minimal tenderness of the injured site), normal capillary refill. Absent: pedal edema, joint swelling, calf tenderness Back exam: Present: normal inspection, full ROM. Absent: tenderness, CVA tenderness (R), CVA tenderness (L) Neurological exam: Present: alert, oriented X3 Psychiatric exam: Present: normal affect, normal mood Skin exam: Present: warm, dry, intact, normal color Course Vital Signs 08/10/20 15:35 Temperature 98.2 F Pulse Rate 95 Respiratory 20 Rate Blood Pressure 140/88 O2 Sat by Pulse 95 Oximetry Medical Decision Making - Medical Decision Making 29-year-old male presents emergency Department with a chief complaint of a nail in the foot. Physical examination reveals a very small puncture wound with no bleeding. Otherwise neurovascularly intact. Tetanus was updated. Dressing was applied. Will be started on Cipro. Advised him about the possible side effects of the medication. Return parameters were discussed with patient was understanding and agreeable. Case discussed with Dr. Diaz. Disposition Clinical Impression: Puncture wound Disposition: HOME SELF-CARE Condition: Stable Instructions (If sedation given, give patient instructions): Puncture Wound (DC) Additional Instructions: Take prescribed medication as directed. Return to emergency department if symptoms worsen. Prescriptions: Ciprofloxacin HCl [Cipro] 500 mg PO Q12HR #20 tablet Is patient prescribed a controlled substance at d/c from ED?: No Referrals: Avis Reno MD [Primary Care Provider] - 1-2 days Time of Disposition: 16:10
== END 2020-08-10 16:40 | disposition home or self-care (01) ==
LOC: EC 15:14
DX: S91.332A Puncture wound without foreign body, left foot, initial encounter (principal); J45.909 Unspecified asthma, uncomplicated; F17.200 Nicotine dependence, unspecified, uncomplicated; Z88.0 Allergy status to penicillin; W45.0XXA Nail entering through skin, initial encounter
CPT/HCPCS: 90471; 90715; 99282

== ENCOUNTER → 2020-09-27 | Outpatient (CLI) | payer OTHER ==
--- NOTE | 2020-09-27 11:54 | ECHOS ---
STRESS ECHOCARDIOGRAM INDICATION: Chest pain. CLINICAL INFORMATION: Baseline EKG shows sinus rhythm, normal axis, normal intervals. Patient exercised on Dileep protocol for a total of 12.5 minutes, achieving 14 METS, 91% of predicted maximal heart rate without chest pain or diagnostic ST-segment depression. Baseline echo shows normal left ventricular size wall motion systolic function. Postexercise, there is normal hyperdynamic response of all segments of myocardium noted. CONCLUSIONS: 1. Excellent exercise tolerance. 2. Negative stress test by EKG criteria. 3. Negative stress echo. MMODL / IJN: [id number] /
== END | disposition home or self-care (01) ==
LOC: RADNMMAIN 09:34
PROVIDERS: ATTEND Internal Medicine Geriatric Medicine
DX: R07.9 Chest pain, unspecified (principal)
CPT/HCPCS: 93351

== ENCOUNTER 2020-11-24 12:43 | Emergency (ER) | payer OTHER ==
[2020-11-24 13:04] VITALS: RESP 18; TEMP 98.6
[2020-11-24] MEDS ORDERED: IBUPROFEN 800 MG TAB PO STA (13:50)
--- NOTE | 2020-11-24 13:50 | ED ---
General Adult HPI - General Chief complaint: Extremity Injury, Lower Stated complaint: R knee dislocated Time Seen by Provider: 11/24/20 13:41 Source: patient, RN notes reviewed Mode of arrival: ambulatory Limitations: physical limitation - History of Present Illness Initial comments: 30-year-old well-appearing white male, presents to the emergency room with complaints of right knee pain. Patient states last night around midnight he hit it on a golf cart causing a dislocated patella. 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 Last night it immediately went back into place on its own. It was a medial patella dislocation. He states his last dislocation was 5 years ago and he was offered surgery and he refused. Patient states he is having difficulty straightening the knee without pain. He is also complaining of dysuria for the past couple of months. He denies sexual activity in the past 3 months. -: hour(s) (12) Location: right, lower extremity (Knee) Radiation: non-radiation Quality: aching Consistency: intermittent Improves with: immobilization Worsens with: movement Associated Symptoms: other (Dysuria for a couple months) Treatments Prior to Arrival: none - Related Data Previous Rx's Medication Instructions Recorded Albuterol Inhaler (Mhu) [Ventolin 1 - 2 puff INHALATION Q6HR PRN #2 12/01/16 Hfa Inhaler (Mhu)] inhaler Azithromycin [Zithromax Z-pack (6 250 mg PO DIRECTED #6 tab 12/01/16 tabs)] Promethazine/Dextromethorphan 5 ml PO TID #120 ml 12/01/16 [Phenergan DM Syrup] predniSONE 50 mg PO DAILY #7 tab 12/01/16 Albuterol Inhaler [Ventolin Hfa 1 puff INHALATION QID PRN #1 11/13/19 Inhaler] inhaler Azithromycin [Zithromax Z-pack (6 0 mg PO DIRECTED #1 pack 11/13/19 tabs)] predniSONE [Deltasone] 20 mg PO DAILY 5 Days #5 tab 11/13/19 Ciprofloxacin HCl [Cipro] 500 mg PO Q12HR #20 tablet 08/10/20 Allergies Allergy/AdvReac Type Severity Reaction Status Date / Time amphetamine [From Adderall] Allergy Rash/Hives Verified 11/24/20 13:04 dextroamphetamine Allergy Rash/Hives Verified 11/24/20 13:04 [From Adderall] Penicillins Allergy Rash/Hives Verified 11/24/20 13:04 Review of Systems ROS Statement: Those systems with pertinent positive or pertinent negative responses have been documented in the HPI. ROS Other: All systems not noted in ROS Statement are negative. Past Medical History Past Medical History: Asthma History of Any Multi-Drug Resistant Organisms: None Reported Past Surgical History: Appendectomy, Orthopedic Surgery Additional Past Surgical History / Comment(s): Right hand surg Past Psychological History: Depression Smoking Status: Former smoker Past Alcohol Use History: Occasional Past Drug Use History: None Reported General Exam Limitations: physical limitation General appearance: alert, in no apparent distress Head exam: Present: atraumatic, normocephalic, normal inspection Eye exam: Present: normal appearance, PERRL, EOMI. Absent: scleral icterus, conjunctival injection, periorbital swelling ENT exam: Present: normal oropharynx, mucous membranes moist Neck exam: Present: normal inspection, full ROM. Absent: tenderness, meningismus, lymphadenopathy Respiratory exam: Present: normal lung sounds bilaterally. Absent: respiratory distress, wheezes, rales, rhonchi, stridor Cardiovascular Exam: Present: regular rate, normal rhythm, normal heart sounds. Absent: systolic murmur, diastolic murmur, rubs, gallop, clicks GI/Abdominal exam: Present: soft, normal bowel sounds. Absent: distended, tenderness, guarding, rebound, rigid Right Knee exam: Present: tenderness, swelling. Absent: full ROM, abrasion, laceration, dislocation, erythema, full knee extension Lower Leg exam: Present: normal inspection Ankle exam: Present: normal inspection Neurovascular tendon exam: Absent: extremity cold to touch, foot drop Gait: observed and limited by pain Back exam: Absent: tenderness Neurological exam: Present: alert, oriented X3, CN II-XII intact Psychiatric exam: Present: normal affect, normal mood Skin exam: Present: warm, dry, intact, normal color. Absent: rash Course Vital Signs 11/24/20 11/24/20 13:02 15:11 Temperature 98.6 F Pulse Rate 90 82 Respiratory 18 18 Rate Blood Pressure 156/81 150/78 O2 Sat by Pulse 96 97 Oximetry Medical Decision Making - Medical Decision Making UA shows 39 WBCs no nitrates no bacteria no ketones and moderate leukocyte esterase. I did speak with Dr. Gil regarding urinalysis. We will have patient follow up with his own primary care Dr Reno, as there is no evidence of bacteria or nitrites and patient denies any sexual activity over the past 3 months. X-rays negative for fracture dislocation there is no sign of joint effusion. Lance wrap was applied and patient will be referred to orthopedics, directed to take motrin, rest, ice and elevate. - Lab Data Lab Results 11/24/20 Range/Units 14:10 Urine Color Yellow Urine Appearance Clear (Clear) Urine pH 7.0 (5.0-8.0) Ur Specific [place] 1.023 (1.001-1.035) Urine Protein Trace H (Negative) Urine Glucose (UA) Negative (Negative) Urine Ketones Negative (Negative) Urine Blood Negative (Negative) Urine Nitrite Negative (Negative) Urine Bilirubin Negative (Negative) Urine Urobilinogen <2.0 (<2.0) mg/dL Ur Leukocyte Esterase Moderate H (Negative) Urine RBC 5 (0-5) /hpf Urine WBC 39 H (0-5) /hpf Urine Mucus Few H (None) /hpf Disposition Clinical Impression: Knee injury Disposition: HOME SELF-CARE Condition: Good Instructions (If sedation given, give patient instructions): Knee Pain (ED) Additional Instructions: Wear Lance wrap, rest, ice and elevate knee. Follow-up with orthopedics next week. Tylenol and/or Motrin for pain. Return with any new or worsening symptoms. Please discuss the urinalysis report with her primary care doctor. Is patient prescribed a controlled substance at d/c from ED?: No Referrals: Avis Reno MD [Primary Care Provider] - 1-2 days Howard Roberts PAC [[facility]] - 1-2 days Time of Disposition: 15:02
--- NOTE | 2020-11-24 14:09 | XR ---
EXAMINATION TYPE: XR knee complete RT DATE OF EXAM: 11/24/2020 COMPARISON: NONE HISTORY: Knee pain TECHNIQUE: 3 views FINDINGS: I see no fracture nor dislocation. Joint spaces are normal. There is no sign of joint effus ion. IMPRESSION: Negative right knee exam.
[2020-11-24 14:24] LABS: Appearance,Urine Clear (Clear); Bilirubin,Urine Negative (Negative); Blood,Urine Negative (Negative); Color,Urine Yellow; Glucose,Urine (UA) Negative (Negative); Ketones,Urine Negative (Negative); Leukocyte Esterase,Urine Moderate (Negative); Mucus,Urine Few /hpf; Nitrite,Urine Negative (Negative); Protein,Urine Trace (Negative); RBC,Urine 5 /hpf (0-5); Specific Gravity,Urine 1.023 (1.001-1.035); Urobilinogen,Urine <2.0 mg/dL (<2.0); WBC,Urine 39 /hpf (0-5)
[2020-11-24 15:14] VITALS: BP 150/78; PULSE 82
== END 2020-11-24 15:11 | disposition home or self-care (01) ==
LOC: EC 12:43
DX: S89.91XA Unspecified injury of right lower leg, initial encounter (principal); J45.909 Unspecified asthma, uncomplicated; F32.9 Major depressive disorder, single episode, unspecified; Z88.0 Allergy status to penicillin; Z90.89 Acquired absence of other organs; Z87.891 Personal history of nicotine dependence; W21.13XA Struck by golf club, initial encounter
CPT/HCPCS: 81001; 87086; 99283

== ENCOUNTER 2024-02-15 13:35 | Emergency (ER) | payer BC, OTHER ==
[2024-02-15 13:44] VITALS: TEMP 98.6
--- NOTE | 2024-02-15 14:05 | ED ---
Arrhythmia/Palpitations HPI - General Source: patient, RN notes reviewed Mode of arrival: ambulatory Limitations: no limitations <Izabela Thibodeaux - Last Filed: 02/15/24 14:03> - General Source: patient, RN notes reviewed, old records reviewed Mode of arrival: ambulatory Limitations: no limitations - History of Present Illness MD Complaint: rapid heart beat, "heart racing", palpitations -: hour(s) Context: occurred during rest Associated Symptoms: denies other symptoms, chest pain, shortness of breath Treatments Prior to Arrival: other (0) <Toni Madden - Last Filed: 02/15/24 16:37> - General Chief Complaint: Arrhythmia/Palpitations Stated Complaint: palpitations Time Seen by Provider: 02/15/24 13:55 - History of Present Illness Initial Comments: Quick Note: This is a 33-year-old male who presents to the emergency department for palpitations. States that it started when he was sitting down around 11 AM. He has associated shortness of breath and chest pain. Symptoms are less severe but still present at this time. He has had this happen to him in the past and has been to a different emergency department, but states that he has not gotten any answers, prompting him to come here instead. (Izabela Thibodeaux) This is a 33-year-old male presenting with feeling his heart beating in his chest with shortness of breath and chest pain (Toni Madden) - Related Data Previous Rx's Medication Instructions Recorded Albuterol Inhaler [Ventolin Hfa 1 - 2 puff INHALATION Q6HR PRN #2 12/01/16 Inhaler] inhaler Azithromycin [Zithromax Z-pack (6 250 mg PO DIRECTED #6 tab 12/01/16 tabs)] Promethazine/Dextromethorphan 5 ml PO TID #120 ml 12/01/16 [Phenergan DM Syrup] predniSONE 50 mg PO DAILY #7 tab 12/01/16 Albuterol Inhaler [Ventolin Hfa 1 puff INHALATION QID PRN #1 11/13/19 Inhaler] inhaler Azithromycin [Zithromax Z-pack (6 0 mg PO DIRECTED #1 pack 11/13/19 tabs)] predniSONE [Deltasone] 20 mg PO DAILY 5 Days #5 tab 11/13/19 Ciprofloxacin HCl [Cipro] 500 mg PO Q12HR #20 tablet 08/10/20 Allergies Allergy/AdvReac Type Severity Reaction Status Date / Time amphetamine [From Adderall] Allergy Rash/Hives Verified 02/15/24 13:44 dextroamphetamine Allergy Rash/Hives Verified 02/15/24 13:44 [From Adderall] Penicillins Allergy Rash/Hives Verified 02/15/24 13:44 Review of Systems ROS Other: All systems not noted in ROS Statement are negative. <Izabela Thibodeaux - Last Filed: 02/15/24 14:03> ROS Other: All systems not noted in ROS Statement are negative. <Toni Madden - Last Filed: 02/15/24 16:37> ROS Statement: Those systems with pertinent positive or pertinent negative responses have been documented in the HPI. Past Medical History Past Medical History: Asthma History of Any Multi-Drug Resistant Organisms: None Reported Past Surgical History: Appendectomy, Orthopedic Surgery Additional Past Surgical History / Comment(s): Right hand surg Past Psychological History: Depression Smoking Status: Current every day smoker, Vaper Past Alcohol Use History: Occasional Past Drug Use History: None Reported <Izabela Thibodeaux - Last Filed: 02/15/24 14:03> General Exam Limitations: no limitations <Izabela Thibodeaux - Last Filed: 02/15/24 14:03> General appearance: alert, in no apparent distress Head exam: Present: atraumatic, normocephalic, normal inspection Eye exam: Present: normal appearance, PERRL, EOMI. Absent: scleral icterus, conjunctival injection, periorbital swelling ENT exam: Present: normal exam, mucous membranes moist Neck exam: Present: normal inspection. Absent: tenderness, meningismus, lymphad enopathy Respiratory exam: Present: normal lung sounds bilaterally. Absent: respiratory distress, wheezes, rales, rhonchi, stridor Cardiovascular Exam: Present: regular rate, normal rhythm, normal heart sounds. Absent: systolic murmur, diastolic murmur, rubs, gallop, clicks GI/Abdominal exam: Present: soft, normal bowel sounds. Absent: distended, tenderness, guarding, rebound, rigid Extremities exam: Present: normal inspection, full ROM, normal capillary refill. Absent: tenderness, pedal edema, joint swelling, calf tenderness Back exam: Present: normal inspection Neurological exam: Present: alert, oriented X3, CN II-XII intact Psychiatric exam: Present: normal affect, normal mood Skin exam: Present: warm, dry, intact, normal color. Absent: rash <Toni Madden - Last Filed: 02/15/24 16:37> - General Exam Comments Initial Comments: Visual Physical Exam Vital signs reviewed General: Well-appearing, nontoxic, no acute distress. Head: Normocephalic, atraumatic Eyes: PERRLA, EOMI ENT: Airway patent Chest: Nonlabored breathing Skin: No visual rash, normal skin tone Neuro: Alert and oriented 3 Musculoskeletal: No gross abnormalities (Izabela Thibodeaux) Course <Toni Madden - Filed: 02/15/24 16:37> Vital Signs 02/15/24 13:40 Temperature 98.6 F Pulse Rate 86 Respiratory 18 Rate Blood Pressure 160/108 O2 Sat by Pulse 95 Oximetry - Reevaluation(s) Reevaluation #1: 02/15/24 16:36 Records reviewed (Toni Madden) Reevaluation #2: 02/15/24 16:36 Patient relatively asymptomatic currently (Toni Madden) Reevaluation #3: 02/15/24 16:36 Patient informed of results questions answered (Toni Madden) Reevaluation #4: Was pt. sent in by a medical professional or institution (, PA, SANITARY PLUMBER, urgent care, hospital, or [facility]...) When possible be specific @ -no Did you speak to anyone other than the patient for history (EMS, parent, family, police, friend...)? What history was obtained from this source @ -no Did you review nursing and triage notes (agree or disagree)? Why? @ -agree Are old charts reviewed (outside hosp., previous admission, EMS record, old EKG, old radiological studies, urgent care reports/EKG's, [facility] records)? Report findings @ -yes Differential Diagnosis (chest pain, altered mental status, abdominal pain women, abdominal pain men, vaginal bleeding, weakness, fever, dyspnea, syncope, headache, dizziness, GI bleed, back pain, seizure, CVA, palpatations, mental health, musculoskeletal)? @ -prior EKG interpreted by me (3pts min.). @ -yes X-rays interpreted by me (1pt min.). @ -yes negative for acute disease CT interpreted by me (1pt min.). @ -no U/S interpreted by me (1pt. min.). @ -no What testing was considered but not performed or refused? (CT, X-rays, U/S, labs)? Why? @ -none What meds were considered but not given or refused? Why? @ -none Did you discuss the management of the patient with other professionals (professionals i.e. Dr., PA, SANITARY PLUMBER, lab, RT, psych nurse, social security benefits interviewer, product examiner, teacher, airplane first officer, senior case manager)? Give summary @ -no Was smoking cessation discussed for >3mins.? @ -no Was critical care preformed (if so, how long)? @ -no Were there social determinants of health that impacted care today? How? (Homelessness, low income, unemployed, alcoholism, drug addiction, transportation, low edu. Level, literacy, decrease access to med. care, correction, rehab)? @ -none Was there de-escalation of care discussed even if they declined (Discuss DNR or withdrawal of care, Hospice)? DNR status @ -no What co-morbidities impacted this encounter? (DM, HTN, Smoking, COPD, CAD, Cancer, CVA, ARF, Chemo, Hep., AIDS, mental health diagnosis, sleep apnea, morbid obesity)? @ -none Was patient admitted / discharged? Hospital course, mention meds given and route, prescriptions, significant lab abnormalities, going to OR and other pertinent info. @ - Undiagnosed new problem with uncertain prognosis? @ -no Drug Therapy requiring intensive monitoring for toxicity (Heparin, Nitro, Insulin, Cardizem)? @ -no Were any procedures done? @ -no Diagnosis/symptom? @ - Acute, or Chronic, or Acute on Chronic? @ -Acute Uncomplicated (without systemic symptoms) or Complicated (systemic symptoms)? @ -Complicated Side effects of treatment? @ -no Exacerbation, Progression, or Severe Exacerbation? @ -exacerbation Poses a threat to life or bodily function? How? (Chest pain, USA, VT, pneumonia, PE, COPD, DKA, ARF, appy, cholecystitis, CVA, Diverticulitis, Homicidal, Suicidal, threat to staff... and all critical care pts) @ -yes (Toni Madden) Reevaluation #5: Differential Palpitations Ventricular arrhythmias, atrial arrhythmias, myocardial infarction, anemia, thyrotoxicosis, electrolyte imbalance, hypokalemia, pulmonary embolism, pulmonary disease, drugs, alcohol, anxiety, stress.... This is not meant to be an all-inclusive list. (Toni Madden) Medical Decision Making <Izabela Thibodeaux - Last Filed: 02/15/24 14:03> - Lab Data Result diagrams: 02/15/24 14:09 02/15/24 14:09 - Radiology Data Radiology results: report reviewed (CT angio chest negative for acute disease chest x-ray is negative for acute disease), image reviewed <Toni Madden - Last Filed: 02/15/24 16:37> - Medical Decision Making I performed the QuickNote portion of this chart. Signed Izabela Thibodeaux PA-C. (Izabela Thibodeaux) 33 male with chest pain and palpitations. Patient did have an elevated D-dimer resulting in a CT scan showing ingested esophageal material, suspect es ophagitis, patient is in no distress currently able to eat and drink and will be discharged home, no evidence of impacted esophageal foreign body (Toni Madden) - Lab Data Lab Results 02/15/24 02/15/24 02/15/24 Range/Units 14:09 14:09 14:09 WBC 7.3 (3.8-10.6) k/uL RBC 5.58 (4.30-5.90) m/uL Hgb 17.0 (13.0-17.5) gm/dL Hct 49.5 (39.0-53.0) % MCV 88.7 (80.0-100.0) fL MCH 30.4 (25.0-35.0) pg MCHC 34.3 (31.0-37.0) g/dL RDW 12.7 (11.5-15.5) % Plt Count 243 (150-450) k/uL MPV 8.0 Neutrophils % 57 % Lymphocytes % 28 % Monocytes % 8 % Eosinophils % 4 % Basophils % 1 % Neutrophils # 4.2 (1.3-7.7) k/uL Lymphocytes # 2.0 (1.0-4.8) k/uL Monocytes # 0.6 (0-1.0) k/uL Eosinophils # 0.3 (0-0.7) k/uL Basophils # 0.1 (0-0.2) k/uL PT 10.4 (10.0-12.5) sec INR 0.9 (<1.2) APTT 24.7 (22.0-30.0) sec D-Dimer 0.67 H (<0.60) mg/L FEU Sodium 141 (137-145) mmol/L Potassium 4.2 (3.5-5.1) mmol/L Chloride 108 H (98-107) mmol/L Carbon Dioxide 22 (22-30) mmol/L Anion Gap 11 mmol/L BUN 13 (9-20) mg/dL Creatinine 1.02 (0.66-1.25) mg/dL Est GFR (CKD-EPI)AfAm >90 (>60 ml/min/1.73 sqM) Est GFR (CKD-EPI)NonAf >90 (>60 ml/min/1.73 sqM) Glucose 88 (74-99) mg/dL Calcium 9.7 (8.4-10.2) mg/dL Magnesium 1.8 (1.6-2.3) mg/dL Total Bilirubin 0.6 (0.2-1.3) mg/dL AST 27 (17-59) U/L ALT 32 (4-49) U/L Alkaline Phosphatase 66 (38-126) U/L Troponin I (0.000-0.034) ng/mL Total Protein 7.9 (6.3-8.2) g/dL Albumin 4.8 (3.5-5.0) g/dL 02/15/24 Range/Units 14:09 WBC (3.8-10.6) k/uL RBC (4.30-5.90) m/uL Hgb (13.0-17.5) gm/dL Hct (39.0-53.0) % MCV (80.0-100.0) fL MCH (25.0-35.0) pg MCHC (31.0-37.0) g/dL RDW (11.5-15.5) % Plt Count (150-450) k/uL MPV Neutrophils % % Lymphocytes % % Monocytes % % Eosinophils % % Basophils % % Neutrophils # (1.3-7.7) k/uL Lymphocytes # (1.0-4.8) k/uL Monocytes # (0-1.0) k/uL Eosinophils # (0-0.7) k/uL Basophils # (0-0.2) k/uL PT (10.0-12.5) sec INR (<1.2) APTT (22.0-30.0) sec D-Dimer (<0.60) mg/L FEU Sodium (137-145) mmol/L Potassium (3.5-5.1) mmol/L Chloride (98-107) mmol/L Carbon Dioxide (22-30) mmol/L Anion Gap mmol/L BUN (9-20) mg/dL Creatinine (0.66-1.25) mg/dL Est GFR (CKD-EPI)AfAm (>60 ml/min/1.73 sqM) Est GFR (CKD-EPI)NonAf (>60 ml/min/1.73 sqM) Glucose (74-99) mg/dL Calcium (8.4-10.2) mg/dL Magnesium (1.6-2.3) mg/dL Total Bilirubin (0.2-1.3) mg/dL AST (17-59) U/L ALT (4-49) U/L Alkaline Phosphatase (38-126) U/L Troponin I <0.012 (0.000-0.034) ng/mL Total Protein (6.3-8.2) g/dL Albumin (3.5-5.0) g/dL Disposition <Izabela Thibodeaux - Last Filed: 02/15/24 14:03> Is patient prescribed a controlled substance at d/c from ED?: No Time of Disposition: 16:30 <Toni Madden - Last Filed: 02/15/24 16:37> Clinical Impression: Gastritis, Esophagitis, Palpitations Disposition: HOME SELF-CARE Condition: Good Instructions (If sedation given, give patient instructions): Heart Palpitations (ED) Referrals: Jason Bloom DO [Primary Care Provider] - 1-2 days Mona Hand MD [STAFF PHYSICIAN] - 1-2 days
[2024-02-15 14:26] LABS: Basophils # (A) 0.1 k/uL (0-0.2); Basophils % (A) 1 %; Eosinophils # (A) 0.3 k/uL (0-0.7); Eosinophils % (A) 4 %; HCT 49.5 % (39.0-53.0); Lymphocytes % (A) 28 %; MCH 30.4 pg (25.0-35.0); MCHC 34.3 g/dL (31.0-37.0); MCV 88.7 fL (80.0-100.0); Monocytes # (A) 0.6 k/uL (0-1.0); Monocytes % (A) 8 %; Neutrophils # (A) 4.2 k/uL (1.3-7.7); Neutrophils % (A) 57 %; Platelet Count 243 k/uL (150-450); RBC 5.58 m/uL (4.30-5.90); RDW 12.7 % (11.5-15.5); WBC 7.3 k/uL (3.8-10.6)
[2024-02-15 14:40] LABS: INR 0.9 (<1.2); Partial Thromboplastin Time 24.7 sec (22.0-30.0); Prothrombin Time 10.4 sec (10.0-12.5)
[2024-02-15 14:44] LABS: ALT 32 U/L (4-49); AST 27 U/L (17-59); African American GFR (CKD) >90 (>60 ml/min/1.73 sqM); Albumin 4.8 g/dL (3.5-5.0); Alkaline Phosphatase 66 U/L (38-126); Anion Gap 11 mmol/L; Blood Urea Nitrogen 13 mg/dL (9-20); Calcium 9.7 mg/dL (8.4-10.2); Carbon Dioxide 22 mmol/L (22-30); Chloride 108 mmol/L (98-107); Glucose 88 mg/dL (74-99); Magnesium 1.8 mg/dL (1.6-2.3); Non-African American GFR(CKD) >90 (>60 ml/min/1.73 sqM); Potassium 4.2 mmol/L (3.5-5.1); Sodium 141 mmol/L (137-145); Total Bilirubin 0.6 mg/dL (0.2-1.3); Total Protein 7.9 g/dL (6.3-8.2)
--- NOTE | 2024-02-15 15:22 | XR ---
EXAMINATION TYPE: XR chest 2V DATE OF EXAM: 02/15/2024 3:17 PM COMPARISON: Chest radiographs from 11/13/2019 CLINICAL INDICATION: Male, 33 years old with history of dysrhythmia; [facility] TECHNIQUE: XR chest 2V Frontal and lateral views of the chest. FINDINGS: Lungs/Pleura: Similar left basilar airspace and interstitial opacity. There is no evidence of pleural effusion, focal consolidation, or pneumothorax. Pulmonary vascularity: Unremarkable. Heart/mediastinum: Cardiomediastinal silhouette is unremarkable. Musculoskeletal: No acute osseous pathology. IMPRESSION: No acute cardiopulmonary disease/process. [facility], Workstation: [facility], 02/15/2024 3:20 PM
--- NOTE | 2024-02-15 16:14 | CT ---
EXAMINATION TYPE: CT chest angio for PE DATE OF EXAM: 02/15/2024 4:08 PM COMPARISON: Chest radiograph same day CLINICAL INDICATION: Male, 33 years old with history of elevated d-dimer; CHEST PAIN TECHNIQUE/CONTRAST: CTA scan of the thorax is performed with IV Contrast, patient injected with 100ML mL of Isovue 370, M IP images are created and reviewed these are created on a separate workstation.. CT DLP: 606.5 mGycm, Automated exposure control for dose reduction was used. FINDINGS: Lungs/Pleura: No evidence of focal consolidation, pleural effusion or pneumothorax. Airway: Large airways are patent. Heart: Heart is within normal limits for size. Vasculature: There is no evidence for a filling defect within the pulmonary vasculature to suggest ac renetta pulmonary embolism. The pulmonary artery is of normal size. Mediastinum: No gross evidence of adenopathy. Patulous esophagus with trace debris throughout the med iastinum esophagus. Musculoskeletal: No acute osseous abnormalities Soft Tissues/lymph nodes: Unremarkable. Lower neck: No significant findings. Upper Abdomen: Scattered colonic diverticula. IMPRESSION: 1. No evidence of pulmonary embolism. 2. Patulous esophagus with debris/ingested contents correlate for reflux and/or esophageal dysmotilit y. [facility], Workstation: [facility], 02/15/2024 4:12 PM
[2024-02-15] MEDS: SODIUM CHLORIDE 0.9% 1,000 ML IV STA (16:48)
[2024-02-15 17:21] VITALS: BP 149/99; PULSE 88; RESP 12
== END 2024-02-15 20:35 | disposition home or self-care (01) ==
LOC: EC 13:35
DX: K20.90 Esophagitis, unspecified without bleeding (principal); K29.70 Gastritis, unspecified, without bleeding; R00.2 Palpitations; F17.290 Nicotine dependence, other tobacco product, uncomplicated; Z88.0 Allergy status to penicillin; Z88.8 Allergy status to other drugs, medicaments and biological substances
CPT/HCPCS: 36415; 93005; 85379; 80053; 83735; 84484; 85025; 85610; 85730; 71046; 71275; 99285; 96360; Q9967

== ENCOUNTER 2024-06-09 10:41 | Day surgery (SDC) | payer BC, OTHER ==
[~2024-06-09 10:41] MED LIST: LIDOCAINE 1% (10MG/ML) FOR IV START INTRADERMA PRN
[2024-06-09] MEDS: IV FLUID CONTINUATION 1,000 ML IV ONE (12:27)
[2024-06-09 12:29] VITALS: TEMP 97
[2024-06-09] MEDS: LACTATED RINGERS 1,000 ML IV SCH (12:37)
[2024-06-09] MEDS ORDERED: PROPOFOL 10 MG/ML 20 ML VIAL IV ONE (13:11)
[2024-06-09] MEDS ORDERED: LIDOCAINE 2% (PF) 20 MG/ML 5 ML VIAL ONE (13:11)
--- NOTE | 2024-06-09 13:20 | P.PCN ---
Date of Procedure: 06/09/24 Procedure(s) Performed: BRIEF HISTORY: Patient is a 33-year-old, pleasant, white male scheduled for an upper endoscopy as a part evaluation of longstanding history of GERD and intermittent dysphagia to solids and atypical chest pain. PROCEDURE PERFORMED: Esophagogastroduodenoscopy with biopsy. PREOPERATIVE DIAGNOSIS: GERD/intermittent dysphagia to solids and atypical chest pain. IV sedation per anesthesia. PROCEDURE: After informed consent was obtained, the patient was brought into the endoscopy unit. IV sedation was administered by Anesthesia under continuous monitoring. Initially the Olympus GIF-140 video endoscope was inserted into the mouth. Esophagus intubated without any difficulty. It was gradually advanced into the stomach and duodenum and carefully examined. The bulb and the second part of the duodenum appeared normal. The scope at this time was withdrawn to the stomach, adequately insufflated with air, and upon careful examination, mucosa of the antrum, body, cardia and the fundus appeared normal. The scope was then withdrawn into the esophagus. Small hiatal hernia noted. The GE junction was located at 39 cm from the incisors. There were 2 linear erosions in the distal esophagus consistent with LA grade B reflux esophagitis. Also there was a 3 mm tongue of Cramer's appearing of the proximal to the GE junction that was biopsied. Distal esophagus appeared normal and the patient tolerated the procedure well. IMPRESSION: 1. Mild antral gastritis. 2. Small hiatal hernia 3. Short segment Cramer's esophagus and 2 linear erosions in the distal esophagus consistent with LA grade B reflux esophagitis. RECOMMENDATIONS: The findings of this examination were discussed with the patient as well as his family. He was advised to increase omeprazole to 20 mg twice daily and follow antireflux measures..
[2024-06-09 14:04] VITALS: BP 123/75; PULSE 80; RESP 16
== END 2024-06-09 14:22 | disposition home or self-care (01) ==
LOC: ORWHC2ENDO 10:41
PROVIDERS: ATTEND Internal Medicine Gastroenterology
DX: K22.70 Barrett's esophagus without dysplasia (principal); K29.70 Gastritis, unspecified, without bleeding; K21.00 Gastro-esophageal reflux disease with esophagitis, without bleeding; K44.9 Diaphragmatic hernia without obstruction or gangrene; G47.33 Obstructive sleep apnea (adult) (pediatric); R56.9 Unspecified convulsions; J45.909 Unspecified asthma, uncomplicated; F17.290 Nicotine dependence, other tobacco product, uncomplicated; Z79.899 Other long term (current) drug therapy; Z86.69 Personal history of other diseases of the nervous system and sense organs; Z88.0 Allergy status to penicillin; Z88.8 Allergy status to other drugs, medicaments and biological substances; K29.50 Unspecified chronic gastritis without bleeding
CPT/HCPCS: 43239; 88305; J2704; J2003

== ENCOUNTER 2024-08-31 15:02 | Emergency (ER) | payer OTHER ==
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
[2024-08-31 15:39] LABS: Basophils # (A) 0.05 10*3/uL (0.00-0.10); Basophils % (A) 0.6 %; Eosinophils # (A) 0.18 10*3/uL (0.04-0.35); Eosinophils % (A) 2.1 %; HCT 47.5 % (39.6-50.0); HGB 16.9 g/dL (13.0-17.0); Lymphocytes # (A) 1.72 10*3/uL (0.90-5.00); Lymphocytes % (A) 19.9 %; MCHC 35.6 g/dL (32.0-37.0); MCV 87.2 fL (80.0-97.0); Mean Platelet Volume 10.5 fL (9.5-12.2); Monocytes # (A) 0.83 10*3/uL (0.20-1.00); Monocytes % (A) 9.6 %; Neutrophils # (A) 5.84 10*3/uL (1.80-7.70); Neutrophils % (A) 67.7 %; Platelet Count 294 10*3/uL (140-440); RBC 5.45 10*6/uL (4.40-5.60); RDW 12.3 % (11.5-14.5); WBC 8.63 10*3/uL (4.50-10.00)
[2024-08-31 15:50] LABS: ALT 39 U/L (4-49); AST 32 U/L (17-59); African American GFR (CKD) 75 (>60 ml/min/1.73 sqM); Albumin 5.1 g/dL (3.5-5.0); Alkaline Phosphatase 65 U/L (38-126); Anion Gap 13 mmol/L; Blood Urea Nitrogen 16 mg/dL (9-20); Calcium 10.6 mg/dL (8.4-10.2); Carbon Dioxide 22 mmol/L (22-30); Chloride 105 mmol/L (98-107); Glucose 109 mg/dL (74-99); Lipase 183 U/L (23-300); Magnesium 1.8 mg/dL (1.6-2.3); Non-African American GFR(CKD) 65 (>60 ml/min/1.73 sqM); Potassium 4.1 mmol/L (3.5-5.1); Sodium 140 mmol/L (137-145); Total Bilirubin 0.6 mg/dL (0.2-1.3); Total Protein 8.1 g/dL (6.3-8.2)
[2024-08-31 17:58] LABS: Appearance,Urine Cloudy (Clear); Bilirubin,Urine Negative (Negative); Blood,Urine Negative (Negative); Color,Urine Yellow; Glucose,Urine (UA) Negative (Negative); Ketones,Urine Negative (Negative); Leukocyte Esterase,Urine Negative (Negative); Mucus,Urine Many /hpf; Nitrite,Urine Negative (Negative); Protein,Urine 1+ (Negative); RBC,Urine 16 /hpf (0-5); Specific Gravity,Urine 1.035 (1.001-1.035); WBC,Urine <1 /hpf (0-5)
[2024-08-31] MEDS: SODIUM CHLORIDE 0.9% 1,000 ML IV ONE (19:36)
[2024-08-31 20:11] VITALS: BP 125/74; PULSE 85; RESP 18; TEMP 97.8
== END 2024-08-31 20:23 | disposition home or self-care (01) ==
LOC: EC 15:02
DX: R00.0 Tachycardia, unspecified (principal); R19.7 Diarrhea, unspecified; R11.2 Nausea with vomiting, unspecified; F17.290 Nicotine dependence, other tobacco product, uncomplicated; Z88.0 Allergy status to penicillin; Z88.8 Allergy status to other drugs, medicaments and biological substances
CPT/HCPCS: 36415; 80053; 81001; 83605; 83690; 83735; 85025; 96360; 99284